=== PATIENT | male | born 1960 | race Caucasian/White ===

== ENCOUNTER 2025-05-13 07:07 | Emergency (ER) | payer OTHER ==
[~2025-05-13] VITALS: Ht 180.3 cm; Wt 99.0 kg
[2025-05-13 07:09] VITALS: O2SAT 100
[2025-05-13] MEDS ORDERED: LISI-186 PO (07:14)
[2025-05-13 07:56] LABS: BASOPHILS % 2.1 % (0.0-2.0); DIFFERENTIAL COMMENT 0; HEMATOCRIT. 26.5 % (42.0-52.0); LYMPHOCYTES % 15.5 % (20.0-50.0); MEAN CORPUSCULAR HEMOGLOBIN 36.2 pg (28.0-32.0); MEAN CORPUSCULAR HGB CONC 34.1 g/dL (31.0-37.0); MEAN CORPUSCULAR VOLUME 106.1 fL (80.0-94.0); MEAN PLATELET VOLUME 9.1 fl (7.4-10.4); MONOCYTES % 14.3 % (2.0-8.0); NEUTROPHILS % 65.1 % (40.0-76.0); PLATELET 130 x1000/uL (130-400); RED CELL DISTRIBUTION WIDTH 12.6 % (11.6-14.6); WHITE BLOOD COUNT 5.8 x1000/uL (4.5-11.0)
[2025-05-13 07:58] LABS: CHLORIDE 103 mEq/L (98-107); POTASSIUM 3.8 mEq/L (3.5-5.1); SODIUM 139 mEq/L (136-145)
[2025-05-13 07:59] LABS: CALCIUM 8.2 mg/dL (8.7-10.4); CARBON DIOXIDE 20 mEq/L (21-32)
[2025-05-13 08:04] LABS: CREATININE 1.8 mg/dL (0.6-1.3); GLUCOSE 73 mg/dL (70-105); UREA NITROGEN BLOOD 29 mg/dL (9-23)
[2025-05-13 08:05] LABS: ETHANOL BLOOD 103 mg/dL (<10); TROPONIN I HIGH SENSITIVITY 20 ng/L (3.0-53)
[2025-05-13] MEDS: TETANUS, DIPHTHERIA, PERTUSSIS VAC/PF 0.5ML (>10YR OLD) IM ONE (08:05)
[2025-05-13] MEDS: ACETAMINOPHEN 325MG TABLET PO ONE (08:05)
[2025-05-13 08:06] LABS: ALANINE AMINOTRANSFERASE 46 IU/L (10-49); ASPARTATE AMINOTRANSFERASE 119 IU/L (<34); BILIRUBIN DIRECT 0.7 mg/dL (<=3.0); BILIRUBIN TOTAL 1.1 mg/dL (0.1-1.0); PROTEIN TOTAL 7.3 g/dL (6.0-8.3)
[2025-05-13] MEDS: SODIUM CHLORIDE 0.9% 1,000 ML IV ONE (08:11)
[2025-05-13 08:15] LABS: INR 1.2
[2025-05-13 10:05] LABS: TROPONIN I HIGH SENSITIVITY 21 ng/L (3.0-53)
[2025-05-13 11:53] VITALS: BP 118/75; PULSE 79; RESP 22; TEMP 36.9; O2SAT 97
== END 2025-05-13 11:57 | disposition home or self-care (01) ==
LOC: ER 07:07
DX: S01.01XA Laceration without foreign body of scalp, initial encounter (principal); R55 Syncope and collapse; I10 Essential (primary) hypertension; X58.XXXA Exposure to other specified factors, initial encounter; Y93.01 Activity, walking, marching and hiking; Y92.89 Other specified places as the place of occurrence of the external cause; Y99.8 Other external cause status
CPT/HCPCS: 80076; 80048; 80320; 83880; 85025; 85610; 84484; 36415; 71045; 70450; 72125; 90715; 93005; 12002; 90471; 96360; 99285; J7030; Z7610; 96361; G0480